=== PATIENT | female | born 1950 | race Caucasian/White ===

== ENCOUNTER 2016-05-17 02:19 | Inpatient (IN) ==
--- NOTE | 2016-05-12 08:02 | HISTORY AND PHYSICAL ---
HISTORY: Samra is a 66-year-old, , white female, para 3-0-0-3, who is admitted to the hospital by Dr. Sheth for a partial colon resection. Samra had severe diverticulitis most recently on April 07 and was hospitalized by Dr. Sheth for intravenous fluids and antibiotic therapy. Now that she has recovered from the acute episode, Dr. Sheth has attempted a colonoscopy and there was severe narrowing of the left colon at the site of the previous inflammation. Because of this and the other studies, Dr. Sheth believes that a partial colon resection is indicated. Samra has also been noted to have a slightly thickened endometrium. However, endometrial biopsy was benign. She has had a normal Pap smear. She has also had a slight enlargement of the left ovary. However, her CA-125 was 23. We will therefore remove the uterus as well as the bilateral adnexal structures to avoid further problems with gynecologic issues. Samra has also been noted to have a cervical polyp and the cervix will be removed. PAST MEDICAL HISTORY: Reveals reasonably good health, although she has had bouts with diverticulitis. PAST SURGICAL HISTORY: Her previous surgery includes bilateral knee replacement as well as a left rotator cuff repair. She also had resection of a single parathyroid gland. PRIMARY CARE PHYSICIAN: She has primary care with the [facility] physician. REGULAR MEDICATIONS: Include lisinopril 10 mg daily as well as vitamins. She has also been taking Colace. She was treated with Flagyl and Augmentin for her diverticulitis. ALLERGIES: She states she is allergic to morphine products as well as sulfa antibiotics. PHYSICAL EXAMINATION: VITAL SIGNS: Blood pressure is 134/86. Her heart rate is 72 and regular. She is afebrile. HEENT: Within normal limits. NECK: Supple. HEART: Regular rhythm without murmurs or gallops. RESPIRATORY: Lungs are clear. BREASTS: Symmetric without masses. ABDOMEN: Soft, nontender. There is no mass palpable. GENITOURINARY: Pelvic exam reveals normal female genitalia. The cervix does have cervical polyps present and the uterus is freely mobile. There is fullness in the left adnexal region but the right adnexal region is normal to palpation. There is adequate support to the bladder and rectum. EXTREMITIES: Well developed without cyanosis or edema. NEUROLOGIC: Examination is intact. ASSESSMENT AND PLAN: Samra is admitted to the hospital at this time a for partial colon resection by Dr. Kadeem Sheth of the general surgery service. At the time of that surgery, we will plan to remove the uterus as well as the bilateral adnexal structures to prevent future problems since there has been thickening of the endometrium as well as cervical polyps and the enlargement of the left ovary. Samra understands this planned procedure as well as the risks and benefits, and she is taking no hormone replacement therapy.
--- NOTE | 2016-05-13 14:13 | EKG Report ---
Test Performed on : 05/13/2016 1:59:34 PM Test Reason : PAT Blood Pressure : / mmHG Vent. Rate : 049 BPM Atrial Rate : 049 BPM P-R Int : 178 ms QRS Dur : 112 ms QT Int : 390 ms P-R-T Axes : 014 -58 269 degrees QTc Int : 352 ms Sinus bradycardia. with sinus arrhythmia. Incomplete right bundle branch block Left anterior fascicular block Left ventricular hypertrophy with repolarization abnormality Cannot rule out Septal infarct (cited on or before 13-MAY-2016) Abnormal ECG When compared with ECG of 07-APR-2016 14:52, Vent. rate has decreased BY 47 BPM Incomplete right bundle branch block is now present Confirmed by Stevie Stein MD ([id number]) on 05/14/2016 8:57:50 PM
[2016-05-13 14:26] LABS: MANUAL DIFF NEEDED? NO; URINE MICRO REVIEW NEEDED? NO; URINE SOURCE CLEAN CATCH
--- NOTE | 2016-05-13 14:55 | Diag Imaging Result Document ---
PROCEDURE NAME: CHEST-2 VIEWS - 05/13/2016 2 VIEWS OF THE CHEST: FINDINGS: There is no evidence of acute cardiac or pulmonary disease. Compared to 04/07/2016, there has been no significant change in the appearance of the chest. IMPRESSION: Stable chest.
[2016-05-13 14:56] LABS: AGAP 11; ALBUMIN 3.9 g/dL (3.5-5.0); ALKALINE PHOSPHATASE 83 U/L (32-104); BUN 10 mg/dL (8-22); CALCIUM 9.3 mg/dL (8.8-10.2); CHLORIDE 102 mmol/L (98-107); COSMO 282; GOT 15 U/L (10-30); GPT 18 U/L (10-36); POTASSIUM 3.8 mmol/L (3.5-5.1); SODIUM 142 mmol/L (136-145); TCO2 29 mmol/L (25-35); TOTAL BILIRUBIN 0.24 mg/dL (0.20-1.00); TOTAL PROTEIN 7.3 g/dL (6.3-8.3)
[2016-05-13 15:08] LABS: BILIRUBIN URINE NEGATIVE (NEGATIVE); BLOOD URINE NEGATIVE (NEGATIVE); COLOR YELLOW; GLUCOSE URINE NEGATIVE (NEGATIVE); LEUKOCYTES URINE NEGATIVE (NEGATIVE); NITRITE URINE NEGATIVE (NEGATIVE); PROTEIN URINE NEGATIVE (NEGATIVE); SP GRAVITY URINE 1.004; TURBIDITY URINE CLEAR (CLEAR); UROBILINOGEN URINE NORMAL (NORMAL)
[2016-05-13 15:09] LABS: UR EPITHELIAL CELLS <10 /HPF (<10); URINE BACTERIA NEGATIVE /HPF; URINE RBC <10 /HPF (<10); URINE WBC <10 /HPF (<10)
[2016-05-13 15:37] LABS: BASO% 0.3 % (0.0-0.8); EOS# 0.21 X1000 (0.0-0.7); EOS% 2.4 % (0.0-10.0); HEMATOCRIT 41.9 % (37.0-47.0); HEMOGLOBIN 13.3 g/dL (12.0-16.0); IMM GRAN# 0.03 X1000 (0.0-0.04); IMM GRAN% 0.3 % (0.0-0.5); LYMPH# 2.31 X1000 (1.2-3.4); LYMPH% 26.1 % (20.5-51.1); MCH 27.5 PG (27-31); MCHC 31.7 g/dL (33-37); MCV 86.7 FL (81-99); MONO# 0.58 X1000 (0.11-0.59); MONO% 6.6 % (1.7-9.3); NEUT% 64.3 % (42.2-75.2); PLT 266 X1000 (130-400); RBC 4.83 XMIL (4.2-5.4)
[2016-05-17] MEDS ORDERED: PEPCID ONE (05:42)
[2016-05-17] MEDS ORDERED: LR 1,000 ML ONE (05:42)
[2016-05-17] MEDS ORDERED: REGLAN ONE (05:42)
[2016-05-17] MEDS ORDERED: ENTEREG ONE (05:47)
[2016-05-17] MEDS ORDERED: MEFOXIN 1 GM/D5W 50 ML IV ONE (06:00)
[2016-05-17] MEDS ORDERED: FLAGYL 1000 MG/NS 200 ML IV ONE (06:30)
[2016-05-17] MEDS ORDERED: MARCAINE 0.25% PF ONE (09:16)
[2016-05-17] MEDS ORDERED: SODIUM CHLORIDE 0.9% 10 ML ONE (09:16)
[2016-05-17] MEDS ORDERED: DIPRIVAN 1% ONE (10:03)
[2016-05-17] MEDS ORDERED: FENTANYL ONE ×2 (10:04)
[2016-05-17] MEDS ORDERED: D5 1/2 NS 1,000 ML ONE (10:07)
[2016-05-17] MEDS ORDERED: DEMEROL PCA VIAL ONE (10:07)
[2016-05-17] MEDS: DEMEROL ONE ×2 (10:20→10:40)
[2016-05-17] MEDS ORDERED: ZOFRAN ONE (10:38)
[2016-05-17] MEDS ORDERED: NORCURON ONE (10:39)
[2016-05-17] MEDS ORDERED: XYLOCAINE-MPF 2% ONE (10:39)
[2016-05-17] MEDS ORDERED: STERILE WATER INJ. ONE (10:39)
[2016-05-17] MEDS ORDERED: LR 3,000 ML ONE (10:40)
[2016-05-17] MEDS ORDERED: DECADRON ONE (10:40)
[2016-05-17] MEDS ORDERED: NARCAN 0.4 MG in LR 1,000 ML IV PRN (10:46)
[2016-05-17] MEDS ORDERED: ZOFRAN IV PRN (10:46)
[2016-05-17] MEDS ORDERED: NARCAN IV PRN (10:46)
[2016-05-17] MEDS ORDERED: DEMEROL PCA VIAL IV PRN (10:46)
--- NOTE | 2016-05-17 11:23 | OPERATIVE NOTE ---
PROCEDURE DATE: 05/17/2016 OPERATIVE PROCEDURES: 1. Total abdominal hysterectomy. 2. Bilateral salpingo-oophorectomy. 3. Lysis of adhesions. SURGEON: Valentin Dunlap MD LOADING MANAGER: Kadeem Sheth MD (General Surgery). ANESTHESIA: General endotracheal. ESTIMATED BLOOD LOSS: 100 mL. DESCRIPTION OF PROCEDURE: Samra was taken to the operating room by Dr. Sheth for partial colon resection because of recurring diverticulitis with narrowing of the colon lumen in the sigmoid region. Ureteral stents were placed by Dr. Arroyo of the urology service at Dr. Sheth' request and a Perrin catheter inserted to the urinary bladder and the vaginal vault was prepped with Betadine. The abdomen was then prepped with Betadine and draped sterilely and preoperative antibiotics had been administered. A lower midline incision was made by Dr. Sheth of the general surgery service in anticipation of the partial colon resection and the incision was extended to approximately 2 inches superior to the umbilicus. A retractor was placed. The bowel was packed out of the pelvic region and there was extensive adhesion formation with scarring from the previous diverticulitis at the sigmoid colon level and the area of the left adnexal structure. These adhesions were lysed with a combination of sharp and blunt dissection by Dr. Sheth and the left adnexal structure was mobilized. The infundibulopelvic ligament was crossclamped, cut, and ligated with Vicryl suture as was the round ligament and an additional pedicle was obtained on this side of the uterine sidewall. The adnexal structure was then excised for improved visualization. A similar procedure was carried out on the contralateral side and, again, the adnexal structure from the right was excised. The bladder was then mobilized off the lower uterine segment. The uterine artery pedicles were bilaterally crossclamped, cut, and ligated with Vicryl suture and 3 additional bites were taken along each margin of the cervix. The cervix was then "removed" from the vaginal apex, taking care to avoid injury to the bladder and urinary tract as well as the underlying vascular structures. This effected a ANNA and BSO. The vaginal cuff was then closed front to back by Dr. Kadeem Sheth using Leonard angle sutures bilaterally with Vicryl suture and closing the cuff front to back with a running interlocking Vicryl suture. Hemostasis was excellent and there was good closure of the cuff under direct visualization and, again, no evidence of any urinary tract injury or injury to the bowel or vascular structures was observed. There was clear urine throughout the procedure and estimated blood loss for the gynecologic portion of the procedure was approximately 100 mL. At this point, I exited the field and Dr. Sheth and his assistants proceeded with segmental colon resection of the sigmoid colon and the surgical findings were those as expected of significant adhesions and scarring in the sigmoid region of the colon.
[2016-05-17] MEDS: D5 1/2 NS 1,000 ML IV SCH (12:10)
--- NOTE | 2016-05-17 12:21 | OPERATIVE NOTE ---
PROCEDURE DATE: 05/17/2016 PREOPERATIVE DIAGNOSES: 1. Diverticulitis. 2. Left ovarian cyst. POSTOPERATIVE DIAGNOSES: 1. Diverticulitis. 2. Left ovarian cyst. PROCEDURES PERFORMED: 1. Cystoscopy with placement of bilateral stents by Dr. Arroyo, which will be covered in a separate operative note. 2. Total abdominal hysterectomy. 3. Bilateral salpingo-oophorectomy by Dr. Sheth and Dr. Dunlap. 4. Sigmoid resection with [address] Sheth. SURGEON: Kadeem Sheth MD DESCRIPTION OF PROCEDURE: The patient was brought to the operating room and, after satisfactory induction of IV and endotracheal anesthesia, she was placed in the exenteration stirrups. Her abdomen and perineum were prepped and draped in the appropriate manner. Initially, Dr. Arroyo performed cystoscopy with placement of bilateral ureteral catheters without incident. Her abdomen was subsequently prepped and draped in the appropriate manner. An umbilical to pubis midline incision was taken sharply down through skin and subcutaneous tissue. The fascia was incised in the midline and the peritoneum was entered. Immediately evident were dense adhesions in the pelvis secondary to bouts of diverticulitis. The sigmoid itself was socked into the left side of the uterus, binding up the left tube and ovary site. The previously described left ovarian cyst was likely related to the diverticulitis. This was freed up sharply. There was an area of perforation in the sigmoid colon in this area that was not leaking. The uterus was grasped with Charlie clamps and the infundibulopelvics and round ligaments were suture ligated and divided. Suture ligations were performed with 0 Vicryl suture. The adnexal areas were amputated and gotten out of the field standard hysterectomy was subsequently performed with lateral bites with Berta clamps or Kindra clamps and suture ligations with 0 Vicryl. The bladder was elevated and freed up inferiorly and the cervix. The top of the vagina was entered and the cervix and the uterus were removed. The vaginal cuff was subsequently sewn with #1 Vicryl running. On completion, there was no bleeding or expanding hematoma. The ureters were intact. Attention was then taken to the sigmoid. It was freed up proximally. An area relatively free of diverticula was divided with a pursestring device proximally. Distal attachments were taken down with the LigaSure instrument. On reaching the peritoneal reflection, dissection was taken further down laterally and posteriorly. An area of distal colon was subsequently divided with a TA 40 stapler. The specimen was marked at the distal end and sent for routine pathology. An EEA anastomosis was subsequently performed. The initial Belspring test revealed a few bubbles coming from the left anterior side. This was bossed with interrupted 3-0 silk and repeat Belspring test was negative for any leak. Saline was aspirated away and, after accounting for all laparotomy sponges, closure was initiated. The peritoneum was closed in a single running layer of #1 Vicryl. The fascia was closed with interrupted #1 Maxon. The subcu was closed with 3-0 Vicryl and the skin itself with stainless steel clips. The ureteral catheters were removed intact and the same length. Dr. Reynolds then entered the suite to place a TAP block for pain control. The patient was subsequently awakened and extubated in the operating room and transferred to recovery. Estimated blood loss was around 250 mL.
--- NOTE | 2016-05-17 14:09 | OPERATIVE NOTE ---
PROCEDURE DATE: PREOPERATIVE DIAGNOSIS: History of severe diverticulitis and uterine problems. POSTOPERATIVE DIAGNOSIS: History of severe diverticulitis and uterine problems. PROCEDURE PERFORMED: Cystoscopic exam and placement of bilateral open-ended ureteral stents. SURGEON: Christopher Arroyo MD ANESTHESIA: General endotracheal. FINDINGS: Cystoscopic exam: Urethra--greater than 21 Jordanian, without stricture. Bladder--normal ureteral orifices bilaterally. No papillary lesions or trabeculations. No red areas consistent with diverticular problems in the bladder. INDICATIONS FOR PROCEDURE: This 66-year-old female with a long history of diverticulitis is going to undergo sigmoid colectomy and hysterectomy. Open-ended catheters are needed to facilitate palpation of the ureters. DESCRIPTION OF PROCEDURE: After informed consent was obtained from the patient and her receiving IV antibiotics, she was taken the main OR and placed in the supine position. General endotracheal anesthesia was achieved. She was then placed in lithotomy position and prepped and draped in the usual sterile fashion for cystoscopic exam. A 21-Jordanian cystoscope was passed through the patient's urethra and into the bladder with findings noted above. A 0.035 ZIPwire was passed through the cystoscope, engaged in the right ureteral orifice, and advanced up into the kidney. A 5-Jordanian open-ended ureteral catheter was passed over the ZIPwire and up into the kidney. The zip wire was removed. The left side was accomplished similarly. A 16-Jordanian Perrin catheter was passed through the patient's urethra and into the bladder and 10 mL of sterile water was placed in the Perrin balloon. The Perrin was pulled back such that the balloon was against the trigone of the bladder. The open-ended ureteral catheters were then placed to gravity drain through the Perrin catheter. The open-ended ureteral stents were tied to the Perrin catheter with 0 silk. The open- ended catheters will be removed at the completion of the case. She tolerated the procedure well and was turned over to Dr. Sheth in good condition.
[2016-05-17] MEDS: MEFOXIN 1 GM/D5W 50 ML IV SCH ×2 (15:03→23:18)
[2016-05-17] MEDS ORDERED: LR 500 ML IV ONE ×2 (16:20→16:22)
[2016-05-17] MEDS: FLAGYL 1000 MG/NS 200 ML IV SCH (17:17)
[2016-05-17] MEDS: PERIDEX MT SCH (23:19)
[2016-05-18] MEDS: FLAGYL 1000 MG/NS 200 ML IV SCH ×2 (00:09→08:34)
[2016-05-18] MEDS: D5 1/2 NS 1,000 ML IV SCH ×3 (06:10→22:50)
[2016-05-18] MEDS: MEFOXIN 1 GM/D5W 50 ML IV SCH (06:10)
[2016-05-18 06:25] LABS: AGAP 10; BUN 5 mg/dL (8-22); CALCIUM 8.9 mg/dL (8.8-10.2); CHLORIDE 103 mmol/L (98-107); COSMO 276; POTASSIUM 4.5 mmol/L (3.5-5.1); SODIUM 138 mmol/L (136-145); TCO2 25 mmol/L (25-35)
[2016-05-18 06:52] LABS: HEMATOCRIT 37.2 % (37.0-47.0); IMM GRAN# 0.02 X1000 (0.0-0.04); IMM GRAN% 0.1 % (0.0-0.5); LYMPH# 0.62 X1000 (1.2-3.4); LYMPH% 4.3 % (20.5-51.1); MANUAL DIFF NEEDED? YES; MCH 27.2 PG (27-31); MCHC 32.3 g/dL (33-37); MCV 84.4 FL (81-99); MONO# 0.72 X1000 (0.11-0.59); MPV 10.6 FL (7.4-10.4); NEUT% 90.6 % (42.2-75.2); PLT 230 X1000 (130-400); RBC 4.41 XMIL (4.2-5.4)
--- NOTE | 2016-05-18 07:36 | EKG Report ---
Test Performed on : 05/18/2016 06:38:25 AM Test Reason : post-op Blood Pressure : / mmHG Vent. Rate : 064 BPM Atrial Rate : 064 BPM P-R Int : 168 ms QRS Dur : 104 ms QT Int : 386 ms P-R-T Axes : 033 -41 003 degrees QTc Int : 398 ms Sinus rhythm. with occasional premature ventricular complexes. and premature atrial complexes. Left axis deviation Nonspecific T wave abnormality Abnormal ECG When compared with ECG of 13-MAY-2016 13:59, premature ventricular complexes. are now present premature atrial complexes. are now present Incomplete right bundle branch block is no longer present Minimal criteria for Septal infarct are no longer present Confirmed by Stevie Stein MD ([id number]) on 05/18/2016 9:51:46 PM
[2016-05-18 08:14] LABS: BANDS 4 % (0-1); LYMPHS 4 % (21-51); MONO 8 % (1-9)
[2016-05-18] MEDS: ENTEREG PO SCH ×2 (08:34→22:50)
[2016-05-18] MEDS: PRINIVIL PO SCH (08:34)
[2016-05-18] MEDS: CENTRUM TABLET PO SCH (08:34)
[2016-05-18] MEDS: PERIDEX MT SCH ×2 (08:38→22:50)
[2016-05-18] MEDS ORDERED: LABETALOL IV ONE (15:58)
[2016-05-19 07:07] LABS: MANUAL DIFF NEEDED? NO
[2016-05-19 07:23] LABS: BASO% 0.1 % (0.0-0.8); EOS# 0.08 X1000 (0.0-0.7); EOS% 0.6 % (0.0-10.0); HEMATOCRIT 36.8 % (37.0-47.0); HEMOGLOBIN 11.5 g/dL (12.0-16.0); IMM GRAN# 0.02 X1000 (0.0-0.04); IMM GRAN% 0.2 % (0.0-0.5); LYMPH# 1.45 X1000 (1.2-3.4); LYMPH% 11.5 % (20.5-51.1); MCH 27.3 PG (27-31); MCHC 31.3 g/dL (33-37); MCV 87.2 FL (81-99); MONO# 0.76 X1000 (0.11-0.59); MPV 11.1 FL (7.4-10.4); NEUT% 81.6 % (42.2-75.2); PLT 234 X1000 (130-400); RBC 4.22 XMIL (4.2-5.4)
[2016-05-19 07:25] LABS: AGAP 11; BUN 4 mg/dL (8-22); CALCIUM 8.7 mg/dL (8.8-10.2); CHLORIDE 99 mmol/L (98-107); COSMO 272; SODIUM 137 mmol/L (136-145); TCO2 27 mmol/L (25-35)
[2016-05-19] MEDS: PERIDEX MT SCH ×2 (08:03→19:41)
[2016-05-19] MEDS: PRINIVIL PO SCH (08:05)
[2016-05-19] MEDS: CENTRUM TABLET PO SCH (08:05)
[2016-05-19] MEDS: ENTEREG PO SCH ×2 (08:05→19:41)
[2016-05-19] MEDS ORDERED: D5 1/2 NS 1,000 ML IV SCH (08:44)
[2016-05-19] MEDS ORDERED: ZOFRAN IV PRN (08:45)
[2016-05-19] MEDS ORDERED: ZOFRAN PO PRN (08:45)
[2016-05-19] MEDS: HEMOCYTE PLUS CAPSULE PO SCH (11:30)
[2016-05-19] MEDS: COLACE PO SCH ×2 (11:30→19:41)
[2016-05-19] MEDS: NORCO-10 PO PRN (16:12)
[2016-05-20] MEDS: COLACE PO SCH ×2 (00:43→09:21)
[2016-05-20] MEDS: PERIDEX MT SCH ×2 (00:43→09:20)
[2016-05-20] MEDS: ENTEREG PO SCH ×2 (00:43→09:21)
[2016-05-20] MEDS: NORCO-10 PO PRN (02:55)
[2016-05-20 08:21] VITALS: BP 154/70
[2016-05-20] MEDS: PRINIVIL PO SCH (09:21)
[2016-05-20] MEDS: CENTRUM TABLET PO SCH (09:21)
[2016-05-20] MEDS: HEMOCYTE PLUS CAPSULE PO SCH (09:21)
== END 2016-05-20 10:41 | disposition home or self-care (01) | DRG 330 ==
LOC: SURHOLD 02:19 → 4N 10:19
PROVIDERS: ADMIT Surgery; ATTEND Surgery
PROC: 0UT20ZZ Resection of Bilateral Ovaries, Open Approach (ICD-10-PCS; 2016-05-17)
PROC: 0T788DZ Dilation of Bilateral Ureters with Intraluminal Device, Via Natural or Artificial Opening Endoscopic (ICD-10-PCS; 2016-05-17)
PROC: 0DTN0ZZ Resection of Sigmoid Colon, Open Approach (ICD-10-PCS; principal; 2016-05-17 07:02)
PROC: 0UT90ZZ Resection of Uterus, Open Approach (ICD-10-PCS; 2016-05-17 07:02)
PROC: 0UTC0ZZ Resection of Cervix, Open Approach (ICD-10-PCS; 2016-05-17 07:02)
PROC: 0UT70ZZ Resection of Bilateral Fallopian Tubes, Open Approach (ICD-10-PCS; 2016-05-17 07:02)
DX: K57.20 Diverticulitis of large intestine with perforation and abscess without bleeding (principal); I10 Essential (primary) hypertension; N84.1 Polyp of cervix uteri; Z79.899 Other long term (current) drug therapy; Z96.653 Presence of artificial knee joint, bilateral; N83.202 Unspecified ovarian cyst, left side; M19.90 Unspecified osteoarthritis, unspecified site; K66.0 Peritoneal adhesions (postprocedural) (postinfection)
CPT/HCPCS: 71020; 80048; 80053; 81001; 85025; 86850; 86900; 86901; 88307; 88313; 93005; 93010; 94760; 94761; 94799; J0694; J1100; J2175; J2405; J3010; J7120; S0020; S0030

== ENCOUNTER 2016-09-13 05:51 | Inpatient (IN) ==
[2016-09-06 14:16] LABS: MANUAL DIFF NEEDED? NO
[2016-09-06 14:18] LABS: BASO% 0.5 % (0.0-0.8); EOS# 0.36 X1000 (0.0-0.7); EOS% 4.1 % (0.0-10.0); HEMATOCRIT 40.8 % (37.0-47.0); IMM GRAN# 0.03 X1000 (0.0-0.04); IMM GRAN% 0.3 % (0.0-0.5); MCH 27.3 PG (27-31); MCHC 31.9 g/dL (33-37); MCV 85.5 FL (81-99); MONO# 0.51 X1000 (0.11-0.59); MONO% 5.9 % (1.7-9.3); MPV 10.3 FL (7.4-10.4); NEUT% 66.2 % (42.2-75.2); PLT 221 X1000 (130-400); RBC 4.77 XMIL (4.2-5.4)
--- NOTE | 2016-09-06 14:32 | Diag Imaging Result Doc PS360 ---
EXAM: CHEST-2 VIEWS HISTORY: PAT TECHNIQUE: COMPARISON: 05/13/2016 FINDINGS: The lungs are well expanded. The heart is not enlarged. The vessels are not distended. There are no infiltrates. No pleural effusions. IMPRESSION: No acute abnormality. Electronically signed by Kevin Mendenhall 09/06/2016 2:29 PM
[2016-09-06 14:34] LABS: URINE SOURCE VOIDED
[2016-09-06 14:38] LABS: AGAP 10; ALBUMIN 3.9 g/dL (3.5-5.0); ALKALINE PHOSPHATASE 89 U/L (32-104); BUN 12 mg/dL (8-22); CALCIUM 9.2 mg/dL (8.8-10.2); CHLORIDE 105 mmol/L (98-107); COSMO 284; GOT 17 U/L (10-30); GPT 17 U/L (10-36); POTASSIUM 3.8 mmol/L (3.5-5.1); SODIUM 142 mmol/L (136-145); TCO2 27 mmol/L (25-35); TOTAL BILIRUBIN 0.17 mg/dL (0.20-1.00); TOTAL PROTEIN 6.7 g/dL (6.3-8.3)
[2016-09-06 14:39] LABS: BILIRUBIN URINE NEGATIVE (NEGATIVE); BLOOD URINE NEGATIVE (NEGATIVE); CLARITY CLEAR (CLEAR); COLOR STRAW; GLUCOSE URINE NEGATIVE (NEGATIVE); LEUKOCYTES URINE NEGATIVE (NEGATIVE); NITRITE URINE NEGATIVE (NEGATIVE); PROTEIN URINE NEGATIVE (NEGATIVE); UROBILINOGEN URINE 0.2 EU/dL (0.2-1.0)
[2016-09-06 15:09] LABS: URINE EPITHELIAL CELLS <10 /HPF (<10); URINE RBC <10 /HPF (<10); URINE WBC <10 /HPF (<10)
--- NOTE | 2016-09-06 15:30 | EKG Report ---
Test Performed on : 09/06/2016 2:10:24 PM Test Reason : PAT Blood Pressure : / mmHG Vent. Rate : 052 BPM Atrial Rate : 052 BPM P-R Int : 188 ms QRS Dur : 108 ms QT Int : 396 ms P-R-T Axes : 009 -60 095 degrees QTc Int : 368 ms Sinus bradycardia. Left anterior fascicular block Septal infarct , age undetermined Abnormal ECG When compared with ECG of 18-MAY-2016 06:38, premature ventricular complexes. are no longer present premature atrial complexes. are no longer present Septal infarct is now present T wave inversion no longer evident in Inferior leads Nonspecific T wave abnormality, worse in Lateral leads Confirmed by Tomi DIAL, Sheng Amanda ([id number]) on 09/08/2016 2:55:09 PM
[2016-09-13] MEDS ORDERED: KEFZOL 1 GM/D5W 1 GM/50 ML IVPB ONE (07:26)
[2016-09-13] MEDS ORDERED: REGLAN ONE (07:26)
[2016-09-13] MEDS ORDERED: PEPCID ONE (07:26)
[2016-09-13] MEDS ORDERED: LR 1,000 ML ONE (07:26)
[2016-09-13] MEDS ORDERED: FENTANYL ONE (07:28)
[2016-09-13] MEDS ORDERED: XYLOCAINE-MPF 2% ONE (07:28)
[2016-09-13] MEDS ORDERED: VERSED ONE (07:28)
[2016-09-13] MEDS ORDERED: DIPRIVAN 1% ONE (07:29)
--- NOTE | 2016-09-13 07:32 | Diag Imaging Result Doc PS360 ---
EXAM: LYMPHOSCINTIGRAPHY W/IMG HISTORY: RIGHT BREAST MASS TECHNIQUE: Lymphoscintigram following injection of 549 uCi of technetium 99m Lymphoseek in the right breast intradermally. COMMENT: There are at least two nodes seen adjacent to the injection site. One of these appears to be medially located superiorly to the injection site on the anterior view. At least one is present laterally towards the axilla. IMPRESSION: Jenelle uptake as described. Electronically signed by Pablo Ramey 09/13/2016 7:30 AM
[2016-09-13] MEDS ORDERED: DECADRON ONE (09:02)
[2016-09-13] MEDS ORDERED: ZOFRAN ONE (09:02)
[2016-09-13] MEDS ORDERED: D5 1/2 NS 1,000 ML ONE (11:09)
[2016-09-13] MEDS ORDERED: DEMEROL ONE (11:25)
[2016-09-13] MEDS ORDERED: ZOFRAN PO PRN (12:02)
[2016-09-13] MEDS ORDERED: ALLEGRA-D 12 HOUR PO PRN (12:02)
[2016-09-13] MEDS: NORCO-10 PO PRN (12:37)
[2016-09-13] MEDS: D5 1/2 NS 1,000 ML IV SCH ×2 (12:39→23:32)
[2016-09-13] MEDS ORDERED: DILAUDID IV PRN (12:41)
--- NOTE | 2016-09-13 13:33 | OPERATIVE NOTE ---
PROCEDURE DATE: 09/13/2016 PREOPERATIVE DIAGNOSIS: Right-sided lobular cancer of the breast. POSTOPERATIVE DIAGNOSIS: Right-sided lobular cancer of the breast. PROCEDURE: [place] nodes with total mastectomy right side, simple mastectomy left side. SURGEON: Kadeem Sheth MD DESCRIPTION OF PROCEDURE: The patient was brought to the operating room. After satisfactory induction of IV and endotracheal anesthesia, athrombic TEDs were placed. Both breasts were prepped and draped in the appropriate manner. Initially, the areas were marked out symmetrically. A simple mastectomy was performed on the left side with primary dissection performed with electrocautery after skin incisions. Flaps were elevated superiorly and inferiorly with dissection taken down to the lateral border of the breast. The lateral margin was marked with a suture and the specimen was passed off. Two Tomi-Kimble drains were threaded through a separate stab wound incision in the lower border and hooked to suction. There was noted to be a small skin defect from the cautery in the upper outer quadrant, this was closed with 3-0 nylon. The subcutaneous was closed with 0 Vicryl and the skin itself, with 4-0 Vicryl subcuticular. The drains were anchored with 0 silk. The surgeon re-gloved, attention was then taken to the right breast. A similar symmetric type incision was made with total mastectomy on the right with 3-4 sentinel nodes being removed. Hemostasis was again obtained by electrocautery or hemoclips. The [place] counter, counts were in the 2-3000 range for the sentinel nodes. They appeared grossly negative. Again, 2 Tomi-Kimble drains were threaded through the inferior flaps and hooked to suction. The subcutaneous was closed with 0 Vicryl and the skin, itself, with again 4-0 Vicryl subcuticular. Steri-Strips, Xeroform gauze were placed. Satisfactory seals were obtained and sterile dressings were applied. The patient was subsequently awakened and extubated in the operating room and transferred to recovery. ESTIMATED BLOOD LOSS: About 200 mL. cc: Kadeem Sheth MD
[2016-09-13] MEDS: KEFZOL 1 GM/D5W 1 GM/50 ML IVPB IV SCH ×2 (16:31→23:09)
[2016-09-13] MEDS: PERIDEX MT SCH ×2 (16:46→23:09)
[2016-09-13] MEDS: ZOFRAN IV PRN (18:59)
[2016-09-13] MEDS: COLACE PO SCH (23:09)
[2016-09-14] MEDS: NORCO-10 PO PRN ×3 (03:33→20:56)
[2016-09-14] MEDS: D5 1/2 NS 1,000 ML IV SCH ×2 (05:26→15:16)
[2016-09-14] MEDS: COLACE PO SCH ×2 (08:22→20:56)
[2016-09-14] MEDS: PERIDEX MT SCH ×2 (08:22→20:56)
[2016-09-14] MEDS: CENTRUM TABLET PO SCH (08:22)
[2016-09-14] MEDS: KEFZOL 1 GM/D5W 1 GM/50 ML IVPB IV SCH (08:22)
[2016-09-14] MEDS ORDERED: SALINE LOCK IV FLUID XX ONE (11:34)
[2016-09-15] MEDS: D5 1/2 NS 1,000 ML IV SCH ×2 (03:26→18:38)
[2016-09-15] MEDS: NORCO-10 PO PRN ×3 (06:14→21:03)
[2016-09-15] MEDS: COLACE PO SCH ×2 (09:45→21:03)
[2016-09-15] MEDS: CENTRUM TABLET PO SCH (09:46)
[2016-09-15] MEDS: PERIDEX MT SCH ×2 (09:46→21:03)
[2016-09-15] MEDS: ZOFRAN IV PRN (10:24)
[2016-09-16] MEDS: NORCO-10 PO PRN (07:29)
[2016-09-16] MEDS: COLACE PO SCH ×2 (07:29→08:00)
[2016-09-16] MEDS: CENTRUM TABLET PO SCH ×2 (07:29→08:00)
[2016-09-16] MEDS: PERIDEX MT SCH ×2 (07:29→08:00)
[2016-09-16] MEDS: D5 1/2 NS 1,000 ML IV SCH (07:29)
[2016-09-16 08:05] VITALS: BP 144/63
--- NOTE | 2016-09-24 17:29 | DISCHARGE SUMMARY ---
ADMISSION DATE: 09/13/2016 DISCHARGE DATE: 09/16/2016 DIAGNOSIS: Lobular carcinoma, right breast. PROCEDURE PERFORMED: Total mastectomy on the right with sentinel nodes. Simple mastectomy on the left. No reconstruction. HOSPITAL COURSE: The patient is a 66-year-old white female known to me from recent sigmoid resection and hysterectomy who had not had a mammogram in several years. Outpatient mammography performed revealed a Class 4 on the right side. Ultrasound biopsy revealed a lobular carcinoma. MRI revealed no evidence of disease in the other side or adenopathy. The patient had no neoadjuvant chemotherapy. She did not desire reconstruction and did desire double mastectomies. The procedure was performed on the day of admission. Hospitalization was largely uneventful. Her Tomi-Kimble drains were subsequently removed on 09/16 and she was allowed home. DISCHARGE MEDICATIONS: Include [place], Zofran and multivitamins. FOLLOWUP: She will be seen in the office in 3-4 days time. cc: Kadeem Sheth MD
== END 2016-09-16 10:02 | disposition home or self-care (01) ==
LOC: 4N 05:51 → OR 05:51 → OBSVTOIN 11:22
PROVIDERS: ADMIT Surgery; ATTEND Surgery